=== PATIENT | female | born 1960 | race African-American/Black ===

== ENCOUNTER 2016-12-29 10:41 | Outpatient (CLI) | payer BC ==
--- NOTE | 2016-12-29 11:41 | MMO ---
BILATERAL SCREENING MAMMOGRAM: DATE: 12/29/2016 HISTORY: A 56-year-old female for screening mammography. COMPARISON: 05/12/2015, 02/25/2014. FINDINGS: Bilateral MLO and CC views of the breasts show scattered fibroglandular breast tissue. There is a m ass-like asymmetry in the anterior aspect of the right breast in the upper aspect of the breast. Th is is not definitely seen on the prior mammogram. Scattered fibroglandular breast tissue is present . There are no suspicious calcifications or areas of architectural distortion. Interpretation of this mammogram was performed with the assistance of computer-aided detection. IMPRESSION: Focal asymmetry in the anterior aspect of the right breast. BIRADS 0: Incomplete. Need additional imaging and evaluation. A diagnostic mammogram should be pe rformed for better evaluation. If this area persists, then an ultrasound may also need to be perfor med. POS: [facility]
== END 2016-12-29 10:42 | disposition home or self-care (01) ==
LOC: MAMMO 10:41
PROVIDERS: ATTEND Physician Assistant
DX: Z12.31 Encounter for screening mammogram for malignant neoplasm of breast (principal)
CPT/HCPCS: 77067; G0202

== ENCOUNTER → 2017-01-11 | Day surgery (SDC) | payer BC ==
--- NOTE | 2017-01-11 15:22 | ULT ---
LIMITED ULTRASOUND RIGHT BREAST: Date: 01/11/17 INDICATION: Patient was initially sent for an ultrasound guided biopsy. The ultrasound exam from 01/04/17 was re viewed and I examined the patient in real-time. FINDINGS: The small cysts are again seen at 11 o'clock and 12 o'clock positions. The largest of these measures in the 5.0 mm range. There is another tiny of smaller cysts, which were described previously. These lesions have benign cystic appearance at real-time. Aspiration would be difficult given the sm all size of these cysts. I see no indication for biopsy at this time. IMPRESSION: Biopsy is deferred at this time. Recommend patient return in 6 months for follow-up ultrasound of th e right breast to confirm stability of these tiny cystic lesions as recommended by Dr. Bennett on the 01/03/17 exam. Findings and recommendations were discussed with Dr. Barclay at the time of this dictation and he c oncurs with this decision. POS: [facility]
== END ==
LOC: ULT 12:02
PROVIDERS: ATTEND Physician Assistant
DX: N60.01 Solitary cyst of right breast (principal); Z53.8 Procedure and treatment not carried out for other reasons; I10 Essential (primary) hypertension; E11.9 Type 2 diabetes mellitus without complications; E78.00 Pure hypercholesterolemia, unspecified; Z79.899 Other long term (current) drug therapy; Z98.890 Other specified postprocedural states; Z87.891 Personal history of nicotine dependence

== ENCOUNTER 2017-08-10 09:30 | Outpatient (CLI) | payer BC | END 2017-08-10 09:31 | disposition home or self-care (01) | LOC: BICULT 09:30 | PROVIDERS: ATTEND Physician Assistant | DX: N60.01 Solitary cyst of right breast (principal) ==

== ENCOUNTER 2018-09-24 15:16 | Outpatient (CLI) | payer BC ==
--- NOTE | 2018-09-25 15:28 | MMO ---
Bilateral MAMMO Bilat Screen [facility]. CLINICAL HISTORY: Patient is 58 years old and is seen for screening. The patient has the following family history of breast cancer: mother and maternal aunt. The patient has no personal history of cancer. VIEWS: The views performed were: bilateral craniocaudal; bilateral craniocaudal with tomosynthesis; bilateral mediolateral oblique; and bilateral mediolateral oblique with tomosynthesis. FILMS COMPARED: The present examination has been compared to prior imaging studies performed at [facility] on 12/29/2016, 01/03/2017 and 01/11/2017. MAMMOGRAM FINDINGS: There are scattered fibroglandular densities. There are no suspicious masses, suspicious calcifications, or new areas of architectural distortion. IMPRESSION: THERE IS NO MAMMOGRAPHIC EVIDENCE OF MALIGNANCY. A ROUTINE FOLLOW-UP MAMMOGRAM IN 1 YEAR IS RECOMMENDED. THE RESULTS OF THIS EXAM WERE SENT TO THE PATIENT. ACR BI-RADS Category 1 - Negative MAMMOGRAPHY NOTE: 1. A negative mammogram report should not delay a biopsy if a dominant of clinically suspicious mass is present. 2. Approximately 10% to 15% of breast cancers are not detected by mammography. 3. Adenosis and dense breasts may obscure an underlying neoplasm. Reported by: SHAMAR DORADO MD Electonically Signed: [id number]
== END 2018-09-24 15:17 | disposition home or self-care (01) ==
LOC: BICMAMMO 15:16
PROVIDERS: ATTEND Physician Assistant
DX: Z12.31 Encounter for screening mammogram for malignant neoplasm of breast (principal); Z80.3 Family history of malignant neoplasm of breast
CPT/HCPCS: 77063; 77067

== ENCOUNTER 2020-07-08 09:12 | Outpatient (CLI) | payer BC | END 2020-07-08 09:13 | disposition home or self-care (01) | LOC: BICMAMMO 09:12 | PROVIDERS: ATTEND Physician Assistant | DX: Z12.31 Encounter for screening mammogram for malignant neoplasm of breast (principal); Z80.3 Family history of malignant neoplasm of breast | CPT/HCPCS: 77063; 77067 ==

== ENCOUNTER 2021-05-10 10:23 | Observation (INO) | payer BC ==
[2021-05-10 11:28] LABS: #Eosinphils 0.3 thou/uL (0.0-0.7); #Lymphocytes 2.2 thou/uL (1.20-3.40); #Monocytes 0.3 thou/uL (0.11-0.59); #Neutrophils 1.7 thou/uL (1.40-6.50); %Basophils 0.9 % (0.0-1.0); %Eosinophils 5.7 % (0.0-10.0); %Monocytes 6.6 % (0.0-10.0); %Neutrophils 37.8 % (42.0-75.0); Hemoglobin 12.9 g/dL (12.0-16.0); Mean Corpuscular HGB CONC 30.7 g/dL (32.0-36.0); Mean Corpuscular Hemoglobin 26.8 pg (27.0-31.0); Mean Corpuscular Volume 87.1 fL (78.0-98.0); Platelet Count 256 thou/uL (130-400); RBC Distribution Width 12.9 % (11.5-14.5); White Blood Cell (WBC) Count 4.6 thou/uL (4.8-10.8)
[2021-05-10] MEDS ORDERED: Aspirin 325 MG TAB ONE (11:52)
[2021-05-10 12:26] LABS: AST (SGOT) 28 U/L (5-34); Albumin 3.8 g/dL (3.5-5.0); Anion Gap 18 mmol/L (10-20); BUN (Urea Nitrogen) 12 mg/dL (9.8-20.1); Bilirubin, Total 0.4 mg/dL (0.2-1.2); Calc. Creatinine Clearance 0 mL/min (70-130); Calcium 9.5 mg/dL (7.8-10.44); Carbon Dioxide 21 mmol/L (22-29); Chloride 103 mmol/L (98-107); Globulin 4.1 g/dL (2.4-3.5); Glucose 93 mg/dL (70-105); Potassium 4.5 mmol/L (3.5-5.1); Protein, Total 7.9 g/dL (6.0-8.3); Sodium 137 mmol/L (136-145)
[2021-05-10 12:38] LABS: ALT (SGPT) 33 U/L (8-55); Alkaline Phosphatase 72 U/L (40-110)
[2021-05-10] MEDS ORDERED: Nitroglycerin 0.4 MG TAB (25 Tab Bottle) SL PRN (13:55)
[2021-05-10] MEDS ORDERED: HumaLOG 300 UNITS/3 ML VIAL SC PRN ×2 (13:59)
[2021-05-10] MEDS ORDERED: Dextrose 5% in Water 1,000 ML IV PRN (13:59)
[2021-05-10] MEDS ORDERED: Dextrose 50% Abboject 50 ML SYRINGE SLOW IVP PRN (13:59)
[2021-05-10] MEDS ORDERED: Albuterol 200 PUFF (6.7GM INHALER) INH PRN (14:00)
[2021-05-10 15:01] LABS: Troponin I Less than 0.010 ng/mL (< 0.028)
[2021-05-10 17:55] LABS: Troponin I Less than 0.010 ng/mL (< 0.028)
[2021-05-10 18:18] VITALS: BMI 42.6
[2021-05-10] MEDS ORDERED: Rosuvastatin 10 MG TAB PO SCH (21:00)
[2021-05-10 23:56] LABS: SARS-CoV-2 PCR by NAA Not Detected (NotDetected)
[2021-05-11 05:07] LABS: Hemoglobin 12.2 g/dL (12.0-16.0); Mean Corpuscular HGB CONC 31.3 g/dL (32.0-36.0); Mean Corpuscular Hemoglobin 27.1 pg (27.0-31.0); Mean Corpuscular Volume 86.5 fL (78.0-98.0); Mean Platelet Volume 7.7 fL (7.4-10.4); Platelet Count 239 thou/uL (130-400); RBC Distribution Width 12.5 % (11.5-14.5); Red Blood Cell (RBC) Count 4.49 mill/uL (4.20-5.40); White Blood Cell (WBC) Count 4.7 thou/uL (4.8-10.8)
[2021-05-11 05:17] LABS: Anion Gap 12 mmol/L (10-20); BUN (Urea Nitrogen) 15 mg/dL (9.8-20.1); Calc. Creatinine Clearance 149 mL/min (70-130); Calcium 9.3 mg/dL (7.8-10.44); Carbon Dioxide 29 mmol/L (22-29); Chloride 104 mmol/L (98-107); Cholesterol 170 mg/dl (< 200 Desired); Glucose 99 mg/dL (70-105); HDL Cholesterol 43 mg/dL (>60 Neg Risk); LDL Cholesterol, Calculated 102 mg/dL; Magnesium 1.8 mg/dL (1.6-2.6); Potassium 3.5 mmol/L (3.5-5.1); Sodium 141 mmol/L (136-145); Triglycerides 125 mg/dL (Less than 150)
[2021-05-11 05:53] LABS: Eosinophils 5 % (0-10); Lymphocytes 58 % (21-51); MDiff Complete? YES; Monocytes 2 % (0-10); Neutrophil 30 % (42-75); Platelet Morphology Comment Appears Adequate; RBC Morphology Normal; Reactive Lymphocytes 4 % (0-10)
[2021-05-11] MEDS ORDERED: Aspirin Chewable 81 MG TAB PO SCH (09:00)
[2021-05-11] MEDS ORDERED: Iopamidol-370 76% 500 ML 1 ML ONE (09:46)
[2021-05-11] MEDS ORDERED: Regadenoson 0.4 MG/5 ML SYRINGE ONE (12:09)
[2021-05-11] MEDS ORDERED: Acetaminophen 325 MG TAB PO SCH (15:45)
[2021-05-11 16:04] VITALS: BP 145/85; TEMP 97.5
== END 2021-05-11 16:39 | disposition home or self-care (01) ==
LOC: ERS 10:23 → ERHOLD 13:59 → 2SW 18:12
PROVIDERS: ADMIT Internal Medicine; ATTEND Internal Medicine
DX: R07.89 Other chest pain (principal); I10 Essential (primary) hypertension; E78.5 Hyperlipidemia, unspecified; E11.9 Type 2 diabetes mellitus without complications; J45.909 Unspecified asthma, uncomplicated; Z20.822 Contact with and (suspected) exposure to COVID-19; E66.9 Obesity, unspecified; Z68.41 Body mass index [BMI] 40.0-44.9, adult; Z79.84 Long term (current) use of oral hypoglycemic drugs; Z79.899 Other long term (current) drug therapy
CPT/HCPCS: 36415; 36416; 71045; 71275; 78452; 80048; 80053; 80061; 83735; 84443; 84484; 85025; 85379; 93005; 93017; A9500; G0378; J2785; Q9967; U0003; U0005

== ENCOUNTER 2021-07-11 09:00 | Outpatient (CLI) | payer BC | END 2021-07-11 09:01 | disposition home or self-care (01) | LOC: BICMAMMO 09:00 | PROVIDERS: ATTEND Physician Assistant | DX: Z12.31 Encounter for screening mammogram for malignant neoplasm of breast (principal); Z80.3 Family history of malignant neoplasm of breast | CPT/HCPCS: 77063; 77067 ==

== ENCOUNTER 2021-10-27 12:53 | Outpatient (CLI) | payer BC | END 2021-10-27 12:54 | disposition home or self-care (01) | LOC: SCSRAD 12:53 | PROVIDERS: ATTEND Chiropractor | DX: M54.6 Pain in thoracic spine (principal); M47.814 Spondylosis without myelopathy or radiculopathy, thoracic region | CPT/HCPCS: 72070 ==

== ENCOUNTER 2023-08-28 15:43 | Emergency (ER) | payer BC ==
[2023-08-28] MEDS ORDERED: Ketorolac Tromethamine 30 MG (1 mL) VIAL ONE (18:31)
== END 2023-08-28 18:47 | disposition home or self-care (01) ==
LOC: ERS 15:43
DX: M79.605 Pain in left leg (principal); I10 Essential (primary) hypertension; E11.9 Type 2 diabetes mellitus without complications
CPT/HCPCS: 96372; J1885

== ENCOUNTER 2024-09-15 21:28 | Emergency (ER) | payer BC ==
[~2024-09-15 21:28] MED LIST: Iopamidol-370 76% 500 ML MDV (1 ML CHARGE) ONE
[2024-09-15] MEDS ORDERED: Ondansetron PF 4 MG/2 ML Vial ONE (22:57)
[2024-09-15 23:04] LABS: #Basophils 0.03 10x3/uL (0.0-0.2); #Eosinophils 0.04 10x3/uL (0.0-0.7); #Monocytes 0.69 10x3/uL (0.11-0.59); #Neutrophils 10.65 10x3/uL (1.40-6.50); %Basophils 0.2 % (0.0-1.0); %Eosinophils 0.3 % (0.0-10.0); %Lymphocytes 6.1 % (21.0-51.0); %Monocytes 5.7 % (0.0-10.0); %Neutrophils 87.3 % (42.0-75.0); Hematocrit 40.1 % (36.0-47.0); Hemoglobin 12.9 g/dL (12.0-16.0); Mean Corpuscular Hemoglobin 25.9 pg (27.0-31.0); Mean Corpuscular Volume 80.5 fL (78.0-98.0); Platelet Count 241 10x3/uL (130-400); Red Blood Cell (RBC) Count 4.98 mill/uL (4.20-5.40); White Blood Cell (WBC) Count 12.21 10x3/uL (4.8-10.8)
[2024-09-15] MEDS ORDERED: Acetaminophen 500 MG TAB ONE (23:25)
[2024-09-15] MEDS ORDERED: Ketorolac Tromethamine 30 MG (1 mL) VIAL ONE (23:25)
[2024-09-15 23:26] LABS: ALT (SGPT) 15 U/L (Less than 34); AST (SGOT) 19 U/L (11-34); Albumin 3.5 g/dL (3.1-4.5); Alkaline Phosphatase 91 U/L (40-110); Anion Gap 14 mmol/L (10-20); BUN (Urea Nitrogen) 9 mg/dL (9.8-20.1); Bilirubin, Total 0.4 mg/dL (0.3-1.2); CK (CPK) 140 U/L (29-168); Calc. Creatinine Clearance 0 mL/min (70-130); Calcium 8.9 mg/dL (7.8-10.44); Carbon Dioxide 26 mmol/L (23-31); Chloride 100 mmol/L (98-107); Globulin 4.0 g/dL (2.4-3.5); Glucose 141 mg/dL (80-115); Lipase 19 U/L (8-78); Potassium 3.4 mmol/L (3.5-5.1); Sodium 137 mmol/L (136-145)
[2024-09-16 01:45] LABS: Bacteria/HPF None Seen HPF (None Seen); CAUTI Indications for Culture Fever or rigors; Glucose, Urine (Dipstick) Normal (Negative); Leukocyte Negative Leu/uL (Negative); Protein, Urine (Dipstick) Negative (Neg-Trace); Specific Gravity, Urine 1.041 (1.002-1.036); WBC/HPF 0-3 HPF (0-3)
[2024-09-16 01:47] LABS: Urine Culture Reflex No No
== END 2024-09-16 02:48 | disposition home or self-care (01) ==
LOC: ERS 21:28
DX: B34.9 Viral infection, unspecified (principal); E86.0 Dehydration; I10 Essential (primary) hypertension; E11.9 Type 2 diabetes mellitus without complications
CPT/HCPCS: 36415; 71046; 74177; 80053; 81001; 82550; 83690; 85025; 87428; 96361; 96374; 96375; J1885; J2405; Q9967

== ENCOUNTER 2025-01-05 04:59 | Emergency (ER) | payer BC ==
[2025-01-05] MEDS ORDERED: Ketorolac Tromethamine 30 MG (1 mL) VIAL ONE (06:30)
== END 2025-01-05 08:40 | disposition home or self-care (01) ==
LOC: ERS 04:59
DX: J11.1 Influenza due to unidentified influenza virus with other respiratory manifestations (principal); E86.0 Dehydration; I10 Essential (primary) hypertension; E11.9 Type 2 diabetes mellitus without complications
CPT/HCPCS: 70450; 87428; 96372; J1885; Q0162